=== PATIENT | male | born 1965 ===

== ENCOUNTER 2020-10-31 11:36 | Emergency (ER) | payer SELFPAY ==
[2020-10-31 12:42] VITALS: BP 169/96
--- NOTE | 2020-10-31 13:41 | Emergency Department Report ---
ED Lower Extremity HPI - General Chief Complaint: Extremity Injury, Lower Stated Complaint: SICK Time Seen by Provider: 10/31/20 13:34 Source: patient Mode of arrival: Ambulatory Limitations: No Limitations - History of Present Illness Initial Comments: Patient is a 55-year-old male presents emergency room complaints of left knee pain that occurred yesterday. He states that he was playing soccer and states he accidentally twisted his knee and fell to the ground. He is ambulatory without difficulty. He denies ever injuring in the past. He denies any knee swelling. He denies any numbness or weakness. No past medical history. No allergies to medications. - Related Data Previous Rx's Medication Instructions Recorded Last Taken Type Naproxen [EC-Naproxen] 500 mg PO BID PRN #14 tablet. 10/31/20 Unknown Rx Allergies Allergy/AdvReac Type Severity Reaction Status Date / Time No Known Allergies Allergy Unverified 10/31/20 12:38 ED Review of Systems ROS: Stated complaint: SICK Other details as noted in HPI Comment: All other systems reviewed and negative ED Past Medical Hx - Past Medical History Previous Medical History?: No - Surgical History Past Surgical History?: No - Medications Home Medications: Home Medications Medication Instructions Recorded Confirmed Last Taken Type Naproxen [EC-Naproxen] 500 mg PO BID PRN #14 tablet. 10/31/20 Unknown Rx ED Physical Exam - General Limitations: No Limitations General appearance: alert, in no apparent distress - Head Head exam: Present: atraumatic, normocephalic - Eye Eye exam: Present: normal appearance - ENT ENT exam: Present: mucous membranes moist - Respiratory Respiratory exam: Absent: respiratory distress, accessory muscle use - Extremities Exam Extremities exam: Present: other (mild left anterior knee ttp, no edema, FROM of the LLE, no deformity, no joint laxity, no erythema, no increased warmth, neurovascularly intact) - Neurological Exam Neurological exam: Present: alert, oriented X3 - Psychiatric Psychiatric exam: Present: normal affect, normal mood - Skin Skin exam: Present: warm, dry, intact ED Course Vital Signs 10/31/20 12:39 Temperature 98.2 F Pulse Rate 67 Respiratory 16 Rate Blood Pressure 169/96 [Right] O2 Sat by Pulse 98 Oximetry ED Lower Extremity MDM - Radiology Data Radiology results: report reviewed Ordering Physician: LÓPEZ ALCOCER Date of Service: 10/31/20 Procedure(s): XR knee 3V LT Accession Number(s): [id number] cc: LÓPEZ ALCOCER Fluoro Time In Minutes: LEFT KNEE 3 VIEWS INDICATION / CLINICAL INFORMATION: left knee pain after soccer injury COMPARISON: None available. FINDINGS: BONES and JOINT(S): No acute fracture or subluxation. There is an old fracture along the proximal third of the fibular shaft. Mild osteoarthritis is seen along the patellofemoral compartment. SOFT TISSUES: No significant abnormality. ADDITIONAL FINDINGS: None. IMPRESSION: 1. No acute findings. Signer Name: Garcia Jasso MD Signed: 10/31/2020 1:58 PM Workstation Name: [id number] Transcribed By: [place] Dictated By: Garcia Jasso MD Electronically Authenticated By: Garcia Jasso MD Signed Date/Time: 10/31/201357 DD/ 56 TD/TT: - Medical Decision Making Patient is a 55-year-old male presents emergency room complaints of left knee pain that occurred yesterday. He states that he was playing soccer and states he accidentally twisted his knee and fell to the ground. He is ambulatory without difficulty. He denies ever injuring in the past. He denies any knee swelling. He denies any numbness or weakness. No past medical history. No allergies to medications. VSS. on exam: mild left anterior knee ttp, no edema, FROM of the LLE, no deformity, no joint laxity, no erythema, no increased warmth, neurovascularly intact. XR left knee: 1. No acute findings. Discussed all results with patient and answered questions. Patient placed in Donaldo wrap by nurse and remained neurovascularly intact. He is ambulatory without difficulty. The knee joint is stable. Patient given prescription for naproxen. Advised patient Please take medication as prescribed as needed. Do not wear Donaldo bandage too tightly and do not wear at night while sleeping. May use ice pack for 15 minutes at a time, elevation of the leg, rest. Follow-up with orthopedic doctor. Return to emergency room for any new or worsening symptoms. - Differential Diagnosis Strain, sprain, fracture, dislocation, contusion, tendinitis Critical care attestation.: If time is entered above; I have spent that time in minutes in the direct care of this critically ill patient, excluding procedure time. ED Disposition Clinical Impression: Left knee sprain Qualifiers: Encounter type: initial encounter Involved ligament of knee: unspecified ligament Qualified Code(s): S83.92XA - Sprain of unspecified site of left knee, initial encounter Osteoarthritis Qualifiers: Osteoarthritis location: knee Osteoarthritis type: unspecified Laterality: left Qualified Code(s): M17.12 - Unilateral primary osteoarthritis, left knee Disposition: TO HOME OR SELFCARE Is pt being admited?: No Does the pt Need Aspirin: No Condition: Stable Instructions: Osteoarthritis, Knee Sprain, Adult, [id number] Additional Instructions: Please take medication as prescribed as needed. Do not wear Donaldo bandage too tightly and do not wear at night while sleeping. May use ice pack for 15 minutes at a time, elevation of the leg, rest. Follow-up with orthopedic doctor. Return to emergency room for any new or worsening symptoms. 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 [Provider Group] - 2-3 Days Time of Disposition: 14:26 Print Language: NEPALESE
--- NOTE | 2020-10-31 14:02 | XRay Report ---
LEFT KNEE 3 VIEWS INDICATION / CLINICAL INFORMATION: left knee pain after soccer injury COMPARISON: None available. FINDINGS: BONES and JOINT(S): No acute fracture or subluxation. There is an old fracture along the proximal thi rd of the fibular shaft. Mild osteoarthritis is seen along the patellofemoral compartment. SOFT TISSUES: No significant abnormality. ADDITIONAL FINDINGS: None. IMPRESSION: 1. No acute findings. Signer Name: Garcia Jasso MD Signed: 10/31/2020 1:58 PM Workstation Name: [id number]
== END 2020-10-31 14:56 | disposition home or self-care (01) ==
LOC: ED 11:36
DX: S83.92XA Sprain of unspecified site of left knee, initial encounter (principal); M17.12 Unilateral primary osteoarthritis, left knee; Z79.899 Other long term (current) drug therapy; W18.30XA Fall on same level, unspecified, initial encounter; Y93.89 Activity, other specified; Y92.89 Other specified places as the place of occurrence of the external cause; Y99.8 Other external cause status
CPT/HCPCS: 99283